=== PATIENT | female | born 1960 | race Caucasian/White ===

== ENCOUNTER 2018-02-06 22:59 | Emergency (ER) | payer MEDICAID ==
[~2018-02-06] VITALS: Ht 160 cm; Wt 53.2 kg
[2018-02-06 23:07] VITALS: BP 108/59
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
[2018-02-06] MEDS: ACETAMINOPHEN EXTRA STRENGTH 500 MG TAB PO ONE (23:51)
[2018-02-07] MEDS: ALBUTEROL 0.083% 2.5 MG/3 ML NEBU INH ONE (00:01)
[2018-02-07 00:33] LABS: HEMATOCRIT 36.8 % (36-48); HEMOGLOBIN 11.9 g/dL (12.0-16.0); MEAN CORPUSCULAR HEMOGLOBIN 28 pg (27-31); MEAN CORPUSCULAR HGB CONC 32 g/dL (33-37); MEAN CORPUSCULAR VOLUME 85 fL (80-94); PLATELET COUNT (AUTO) 298 K/uL (140-450); RED BLOOD CELL COUNT(AUTO) 4.32 MIL/uL (4.20-5.40); RED CELL DISTRIBUTION WIDTH 14.1 % (11.6-13.7)
[2018-02-07 00:38] LABS: ANION GAP 13.2 (8-16); CARBON DIOXIDE 25.9 mmol/L (21-32); CREATININE 0.5 mg/dL (0.6-1.3); POTASSIUM 3.1 mmol/L (3.5-5.1)
[2018-02-07 00:43] LABS: ALBUMIN 3.1 g/dL (3.4-5.0); BARBITURATE, URINE NEG. ng/ml (NEG <=200); BENZODIAZEPINE, URINE NEG. ng/mL (NEG <=200); CANNABINOID, URINE NEG. ng/mL (NEG <=50); COCAINE, URINE NEG. ng/mL (NEG <=300); OPIATE, URINE NEG. ng/mL (NEG <=2000); PHENCYCLIDINE SCREEN,URINE NEG. ng/mL (NEG <=25); TOTAL BILIRUBIN 0.3 mg/dL (0.0-1.0)
[2018-02-07 00:46] LABS: APPEARANCE,URINE CLEAR (CLEAR); BILIRUBIN,URINE NEGATIVE (NEGATIVE); BLOOD, URINE 3+ (NEGATIVE); COLOR,URINE YELLOW (YELLOW); LEUKOCYTE ESTERASE ,URINE NEGATIVE (NEGATIVE); NITRITE, URINE NEGATIVE (NEGATIVE); UGLUCOSE NEGATIVE (NEGATIVE)
[2018-02-07 00:51] LABS: WHITE BLOOD COUNT (AUTO) 21.6 K/uL (4.8-10.8)
[2018-02-07 00:52] LABS: LYMPHOCYTES % (MANUAL) 5 % (20-46); MONOCYTES % (MANUAL) 3 % (5-12)
--- NOTE | 2018-02-07 00:57 | NUR ---
PT RESTING. NO COUGPHING. AFEBRILE. DENIES PAIN OR DISCOMFORT. WILL CONTINUE TO MONITOR.
[2018-02-07 01:01] LABS: RBC,URINE 3-10 (FEW) /HPF (0-5); WBC,URINE 0-5 (RARE) /HPF (0-5)
[2018-02-07] MEDS ORDERED: cefTRIAXone 1,000 MG VIAL ONE (01:11)
--- NOTE | 2018-02-07 01:18 | NUR ---
NEW PERIPHERAL IV STARTED TO RIGHT HAND 22G WITH 1 ATTEMPT. POSITIVE BLOOD RETURN AND FLUSHES WELL. PT TOLERATED WELL. ROCEPHIN IV STARTED ORDERED.
[2018-02-07] MEDS ORDERED: AZITHROMYCIN 500 MG INJ VIAL IV ONE (01:52)
[2018-02-07] MEDS: AZITHROMYCIN 500 MG in DEXTROSE 5% 250 ML IV ONE (01:57)
--- NOTE | 2018-02-07 01:57 | NUR ---
ZITHROMAX IV STARTED ORDERED. PT DENIES PAIN OR DISCOMFORT. VS STABLE. AFEBRILE. WILL CONTINUE TO MONITOR.
[2018-02-07 03:08] VITALS: BP 120/68
--- NOTE | 2018-02-07 03:08 | NUR ---
Patient discharged with v/s stable. Written and verbal after care instructions given and explained. Patient alert, oriented and verbalized understanding of instructions. Ambulatory with steady gait. All questions addressed prior to discharge. ID band removed. Patient advised to follow up with PMD. Rx of PREDNISONE, ROBITUSSIN DM, ZITHROMAX Z-BING, ALBUTEROL given. Patient educated on indication of medication including possible reaction and side effects. PT WAS GIVEN WITH THE [facility] [employer] ADN SIGNED THE [facility] PATIENT WAIVER FORM. Opportunity to ask questions provided and answered.
== END 2018-02-07 03:08 | disposition home or self-care (01) ==
LOC: MED 22:59
DX: R05 Cough (principal); R06.02 Shortness of breath; R51 Headache; J45.909 Unspecified asthma, uncomplicated; Z88.8 Allergy status to other drugs, medicaments and biological substances
CPT/HCPCS: 36415; 71045; 80053; 80305; 81001; 85025; 94640; 94760; 96365; 96367; 99285; J0456; J0696; J7060; J7613